=== PATIENT | female | born 1985 | race Two or more races ===

== ENCOUNTER 2024-03-22 16:36 | Emergency (ER) | payer OTHER ==
[~2024-03-22] VITALS: Ht 177.8 cm; Wt 100.0 kg
[2024-03-22 16:56] VITALS: O2SAT 100
[2024-03-22] MEDS: ACETAMINOPHEN 500MG TABLET PO ONE (20:11)
[2024-03-22 20:12] VITALS: BP 131/83; PULSE 79; RESP 17; TEMP 36.66960; O2SAT 99
== END 2024-03-22 20:15 | disposition home or self-care (01) ==
LOC: ER 16:36
DX: S05.91XA Unspecified injury of right eye and orbit, initial encounter (principal); W22.03XA Walked into furniture, initial encounter; X58.XXXA Exposure to other specified factors, initial encounter; Y92.89 Other specified places as the place of occurrence of the external cause; Y99.8 Other external cause status
CPT/HCPCS: 99282